=== PATIENT | male | born 1960 | race Two or more races ===

== ENCOUNTER 2023-12-05 17:19 | Emergency (ER) | payer MEDICAID, SELFPAY ==
--- NOTE | 2023-12-05 18:18 | PC.NURSE ---
CALLED FROM [facility] AND NO ANSWER
--- NOTE | 2023-12-05 18:25 | PC.NURSE ---
CALLED FROM [facility] AND NO ANSWER
--- NOTE | 2023-12-05 18:30 | PC.NURSE ---
CALLED FROM [facility] AND NO ANSWER
== END 2023-12-05 18:30 | disposition left against medical advice (07) ==
PROVIDERS: Emergency Provider Emergency Medicine
DX: Z53.21 Procedure and treatment not carried out due to patient leaving prior to being seen by health care provider (principal)

== ENCOUNTER 2024-11-18 04:34 | Emergency (ER) | payer MEDICARE, SELFPAY ==
[2024-11-18 04:38] VITALS: BP 184/95; PULSE 89; RESP 18; TEMP 36.4; O2SAT 97
--- NOTE | 2024-11-18 04:40 | XR_ITS ---
Examination: CT abdomen with intravenous contrast CT pelvis with intravenous contrast 2-D coronal reconstructions 2-D sagittal reconstructions Date and time of exam:November 18, 2024 0600 hrs. Indications: Abdominal pain and urinary retention today. CTDI: vol (mGy) 14.97 DLP: (mGycm) 673 Technique: Multiple axial sections of the abdomen and pelvis have been obtained. 64 slice high-resolution scanner used. 3 mm axial sections have been obtained, post intravenous injection 60 cc Isovue-370 2-D sagittal, coronal reconstructions obtained. Low dose protocols were performed. One or more of the following dose reduction techniques were used; automated exposure control, adjustment of the mA and/or KV according to patient size, use of iterative reconstruction technique. Findings: No focal liver or splenic lesions Contracted gallbladder No pancreatic or adrenal mass No renal or ureteral calculi. There is minimal dilatation of the left ureter which appears to relate to the patient's marked prostatomegaly, AP dimension 5.3 cm Urinary bladder wall is thickened, likely outflow tract obstruction secondary to the prostatomegaly Urinary Calvert catheter in the bladder Fat-containing left inguinal hernia Normal appendix No bowel obstruction Scattered colonic diverticulosis Impression: Minimal dilatation left ureter secondary to the patient's marked prostatomegaly Urinary bladder wall is thickened up to 7 mm, likely urinary tract outflow obstruction secondary to the significant prostatomegaly Urinary Calvert catheter is in the bladder Small fat-containing left inguinal hernia
--- NOTE | 2024-11-18 04:53 | EDNOTE_ITS ---
ED Male Genitalurinary RME/HPI General Chief complaint: Urogenital-Male Stated complaint: UNABLE TO URINATE Time Seen by Provider: 11/18/24 04:46 Arrival date/time: 11/18/24 04:34 RME / HPI RME / HPI Narrative: See MDM for documentation Related Data Allergies Allergy/AdvReac Type Severity Reaction Status Date / Time No Known Allergies Allergy Verified 11/18/24 04:44 Review of Systems Review of Systems Systems Reviewed: All systems reviewed, normal except as documented ED Exam Narrative Physical exam: See MDM for documentation Course Quality Measures none Orders Category Date Time Status CT Screening NOW Care 11/18/24 04:40 Active Calvert [Urinary Catheter] QS Care 11/18/24 04:45 Active Calvert to [place] Routine Care 11/18/24 04:38 Ordered Saline [Insert IV] NOW Care 11/18/24 04:[address] abdomen pelvis w con Stat Exams 11/18/24 04:40 Ordered Alcohol, Blood Medical Stat Lab 11/18/24 04:42 Ordered Bilirubin,Direct Stat Lab 11/18/24 04:42 Ordered CBC Stat Lab 11/18/24 04:42 Ordered CMP [Comprehensive Metabolic Panel] Stat Lab 11/18/24 04:42 Ordered Magnesium Stat Lab 11/18/24 04:42 Ordered UA, C/S IF [Urinalysis, C/S if Indicated] Stat Lab 11/18/24 04:42 Ordered Vital Signs Vital signs: Vital Signs Temperature 97.6 F 11/18/24 04:38 Pulse Rate 89 11/18/24 04:38 Respiratory Rate 18 11/18/24 04:38 Blood Pressure 184/95 H 11/18/24 04:38 Pulse Oximetry (%) 97 11/18/24 04:38 Oxygen Delivery Method Room Air 11/18/24 04:38 Urogenital - Male [facility] Narrative [facility] Narrative:: This section includes all my notes and documentations, including HPI, PE, and ED course. Jose Cervantes MD HPI: 64-year-old male here with about 8-hour history of urinary retention and worsening lower abdominal pain. Had few alcoholic beverages prior to the symptoms. No nausea or vomiting. No fever or chills. No other complaints. ROS: All negative except as documented in HPI. Physical Exam: General: Alert and oriented. In severe pain. Eyes: Conjunctivae and lids clear. ENT: No nasal congestion. Neck: Supple. Heart: RRR. Lungs: No respiratory distress. Good air movement. No rhonchi, wheezing, rales. Abdomen: Soft with suprapubic tenderness. Normal bowel sounds. No distension. No rebound or guarding. Back: No CVA tenderness. Skin: Warm and dry. Neuro: Alert and oriented X 3. I ordered Calvert catheter and diagnostic tests. At 6 AM on 11/18/2024, the care of the patient was transferred to Dr. Chew. Jose Cervantes MD Patient data External records reviewed:: [facility] previous records Clinical information provided by:: patient and spouse Social determinants that could affect healthcare access:: none Patient has the following chronic illnesses:: None How is presenting disease/condition affected by chronic disease/condition?: no chronic disease Evaluation data The following diagnostics were reviewed and interpreted by me:: other (specify) (Diagnostic tests are pending.) Lab and/or radiology exams considered but not ordered:: None Interpretation Summary: Diagnostic tests are pending. Medications / Prescriptions Medications or Prescriptions considered but not ordered:: None Medication administrations:: None Consultations Consultation(s) initiated? (list below): No Diagnosis Urogenital Male Differential Diagnosis: urinary tract infection, acute retention of urine and other (BPH and pyelonephritis and kidney disease and prostate cancer) Most likely diagnosis given after review of the tests above:: Diagnostic tests are pending. Admission Indicated Admission indicated?: not indicated Explain why admission is indicated or not indicated:: Diagnostic tests are pending. Admission Request Was there a request for admission?: No Disposition Plan Disposition Plan: other (specify) (At 6 AM on 11/18/2024, the care of the patient was transferred to Dr. Chew. ) Discharge Plan Problem List Clinical Impression: Acute urinary retention Patient/Caregiver Discharge Instructions Print Language: Albanian
[2024-11-18 05:02] LABS: Collection Type, Urine Clean Catch
[2024-11-18 05:05] LABS: Bilirubin,Urine Negative (Negative); Blood,Urine 3+ (Negative); Clarity,Urine Clear (Clear/Hazy); Color,Urine Colorless (Lt Yel-Yel); Culture Indicated,Urine Not Indicated; Glucose, Urine Negative (Negative); Ketones,Urine Negative (Negative); Leukocyte Esterase,Urine Negative (Negative); Nitrite,Urine Negative (Negative); PH,Urine 5.5 (5.0-7.0); Protein,Urine Negative (Neg - Trace); RBC,Urine 11 /hpf (0-3); Specific Gravity,Urine 1.011 (1.001-1.035); Squamous Epithelial Cell,Urine < 1 /hpf (0-5); Urobilinogen,Urine Negative mg/dL (0.0-1.0); WBC,Urine 2 /hpf (0-5)
[2024-11-18 05:06] LABS: Basophils # (Auto) 0.1 Thou/mm3 (0.0-0.2); Basophils % (Auto) 1 % (0-2.5); Eosinophils # (Auto) 0.1 Thou/mm3 (0.0-0.5); Eosinophils % (Auto) 1 % (0-10); Hematocrit 41.9 % (41.0-53.0); Hemoglobin 14.8 g/dL (13.5-16.0); Immature Granulocytes Auto 0.05 Thou/mm3 (0.00-0.00); Lymphocytes # (Auto) 1.4 Thou/mm3 (1.0-4.8); Lymphocytes % (Auto) 22 % (10-50); Mean Corpuscular HGB Conc 35.3 g/dl (31.0-37.0); Mean Corpuscular Hemoglobin 29.9 pg (25.0-35.0); Mean Corpuscular Volume 85 fL (80-100); Monocytes # (Auto) 0.4 Thou/mm3 (0.0-0.8); Monocytes % (Auto) 6 % (0-12); Neutrophils # (Auto) 4.2 Thou/mm3 (1.8-7.7); Neutrophils % (Auto) 68 % (37-80); Nucleated Red Blood Cell # 0.00 Thou/mm3 (0.00-0.00); Nucleated Red Blood Cell % 0 /100 WBC (0); Platelet Count 220 Thou/mm3 (140-440); RDW Standard Deviation 35.8 fL (35.1-43.9); Red Blood Count 4.95 Miln/mm3 (4.50-5.90); White Blood Count 6.2 Thou/mm3 (3.8-10.6)
[2024-11-18 05:28] LABS: Alanine Aminotransferase 24 U/L (10-49); Albumin, Serum 4.9 gm/dL (3.4-4.8); Albumin/Globulin Ratio 2.0 (1.2-2.2); Alcohol, Blood Medical 116.9 mg/dL (0-10.0); Alkaline Phosphatase 96 U/L (46-116); Anion Gap 13 (7-16); Aspartate Amino Transferase 25 U/L (0-34); BUN/Creatinine Ratio 13 Ratio (12-20); Bilirubin,Direct < 0.1 mg/dL (0.0-0.3); Bilirubin,Total 0.3 mg/dL (0.3-1.2); Blood Urea Nitrogen 12 mg/dL (9-23); Calcium 9.2 mg/dL (8.3-10.6); Calcium (Corrected) 9.2 mg/dL (8.5-10.1); Carbon Dioxide 18.7 mMol/L (20.0-31.0); Chloride 111 mMol/L (98-107); Creatinine (Component) 0.9 mg/dL (0.6-1.3); Globulin 2.4 gm/dL (2.3-3.5); Glucose 126 mg/dL (74-106); Magnesium 2.4 mg/dL (1.6-2.6); Osmolality,Calculated 286 (275-295); Potassium 4.1 mMol/L (3.4-5.1); Sodium 143 mMol/L (136-145); Total Protein 7.3 gm/dL (5.7-8.2); eGFR > 60 See Note
[2024-11-18] MEDS: SODIUM CHLORIDE 0.9% 1000 ML 1,000 ML 999 ML IV (06:11)
--- NOTE | 2024-11-18 06:43 | PD.EDADDENDU ---
Emergency Room Addendum <Hilda Rodriguez - Last Filed: 11/18/24 08:19> Addendum Narrative: 0600: Care assumed from Dr. Cervantes, the previous shift emergency physician. Past medical, surgical, social and family history reviewed. Vitals and home medications reviewed. I will assume the care of the patient at this time, pending abdomen/ pelvis CT and final disposition. Please refer to the emergency department record for history and examination from initial visit.? CT scan of the abdomen and pelvis on 11/18/2024 shows: Impression: Minimal dilatation left ureter secondary to the patient's marked prostatomegaly Urinary bladder wall is thickened up to 7 mm, likely urinary tract outflow obstruction secondary to the significant prostatomegaly Urinary Calvert catheter is in the bladder Small fat-containing left inguinal hernia Physical exam by me shows patient under no acute distress at this time. Patient will be discharged home with a Calvert in place and a leg bag. Follow-up with his regular doctor and referral to urology. <Monico Chew MD - Last Filed: 11/18/24 08:14> Addendum Narrative: 0600: Care assumed from Dr. Cervantes, the previous shift emergency physician. Past medical, surgical, social and family history reviewed. Vitals and home medications reviewed. I will assume the care of the patient at this time, pending abdomen/ pelvis CT and final disposition. Please refer to the emergency department record for history and examination from initial visit.? CT scan of the abdomen and pelvis on 11/18/2024 shows: Impression: Minimal dilatation left ureter secondary to the patient's marked prostatomegaly Urinary bladder wall is thickened up to 7 mm, likely urinary tract outflow obstruction secondary to the significant prostatomegaly Urinary Calvert catheter is in the bladder Small fat-containing left inguinal hernia Physical exam by me shows patient under no acute distress at this time. Patient will be discharged home with a Calvert in place and a leg bag. Follow-up with his regular doctor and referral to urology. Results <Hilda Rodriguez - Last Filed: 11/18/24 08:19> Objective Laboratory: Laboratory Last Values WBC 6.2 Thou/mm3 (3.8-10.6) 11/18/24 04:50 RBC 4.95 Miln/mm3 (4.50-5.90) 11/18/24 04:50 Hgb 14.8 g/dL (13.5-16.0) 11/18/24 04:50 Hct 41.9 % (41.0-53.0) 11/18/24 04:50 MCV 85 fL (80-100) 11/18/24 04:50 MCH 29.9 pg (25.0-35.0) 11/18/24 04:50 MCHC 35.3 g/dl (31.0-37.0) 11/18/24 04:50 RDW Std Deviation 35.8 fL (35.1-43.9) 11/18/24 04:50 Plt Count 220 Thou/mm3 (140-440) 11/18/24 04:50 Neut % (Auto) 68 % (37-80) 11/18/24 04:50 Lymph % (Auto) 22 % (10-50) 11/18/24 04:50 [place] % (Auto) 6 % (0-12) 11/18/24 04:50 Eos % (Auto) 1 % (0-10) 11/18/24 04:50 Baso % (Auto) 1 % (0-2.5) 11/18/24 04:50 Neut # (Auto) 4.2 Thou/mm3 (1.8-7.7) 11/18/24 04:50 Lymph # (Auto) 1.4 Thou/mm3 (1.0-4.8) 11/18/24 04:50 [place] # (Auto) 0.4 Thou/mm3 (0.0-0.8) 11/18/24 04:50 Eos # (Auto) 0.1 Thou/mm3 (0.0-0.5) 11/18/24 04:50 Baso # (Auto) 0.1 Thou/mm3 (0.0-0.2) 11/18/24 04:50 Immature Gran # (Auto) 0.05 Thou/mm3 (0.00-0.00) H 11/18/24 04:50 Absolute Nucleated RBC 0.00 Thou/mm3 (0.00-0.00) 11/18/24 04:50 Immature Gran % 1 % (0-0) H 11/18/24 04:50 Nucleated RBC % 0 /100 WBC (0) 11/18/24 04:50 Sodium 143 mMol/L (136-145) 11/18/24 04:50 Potassium 4.1 mMol/L (3.4-5.1) 11/18/24 04:50 Chloride 111 mMol/L (98-107) H 11/18/24 04:50 Carbon Dioxide 18.7 mMol/L (20.0-31.0) L 11/18/24 04:50 Anion Gap 13 (7-16) 11/18/24 04:50 BUN 12 mg/dL (9-23) 11/18/24 04:50 Creatinine 0.9 mg/dL (0.6-1.3) 11/18/24 04:50 Estim Creat Clear Calc Not Performed. 11/18/24 04:50 eGFR > 60 See Note (60-) 11/18/24 04:50 BUN/Creatinine Ratio 13 Ratio (12-20) 11/18/24 04:50 Glucose 126 mg/dL (74-106) H 11/18/24 04:50 Calculated Osmolality 286 (275-295) 11/18/24 04:50 Calcium 9.2 mg/dL (8.3-10.6) 11/18/24 04:50 Corrected Calcium 9.2 mg/dL (8.5-10.1) 11/18/24 04:50 Magnesium 2.4 mg/dL (1.6-2.6) 11/18/24 04:50 Total Bilirubin 0.3 mg/dL (0.3-1.2) 11/18/24 04:50 Direct Bilirubin < 0.1 mg/dL (0.0-0.3) 11/18/24 04:50 AST 25 U/L (0-34) 11/18/24 04:50 ALT 24 U/L (10-49) 11/18/24 04:50 Alkaline Phosphatase 96 U/L (46-116) 11/18/24 04:50 Total Protein 7.3 gm/dL (5.7-8.2) 11/18/24 04:50 Albumin 4.9 gm/dL (3.4-4.8) H 11/18/24 04:50 Globulin 2.4 gm/dL (2.3-3.5) 11/18/24 04:50 Albumin/Globulin Ratio 2.0 (1.2-2.2) 11/18/24 04:50 Ur Collection Type Clean Catch 11/18/24 04:57 Urine Color Colorless (Lt Yel-Yel) A 11/18/24 04:57 Urine Clarity Clear (Clear/Hazy) 11/18/24 04:57 Urine pH 5.5 (5.0-7.0) 11/18/24 04:57 Ur Specific [place] 1.011 (1.001-1.035) 11/18/24 04:57 Urine Protein Negative (Neg - Trace) 11/18/24 04:57 Urine Glucose (UA) Negative (Negative) 11/18/24 04:57 Urine Ketones Negative (Negative) 11/18/24 04:57 Urine Blood 3+ (Negative) A 11/18/24 04:57 Urine Nitrite Negative (Negative) 11/18/24 04:57 Urine Bilirubin Negative (Negative) 11/18/24 04:57 Urine Urobilinogen (Auto) Negative mg/dL (0.0-1.0) 11/18/24 04:57 Ur Leukocyte Esterase Negative (Negative) 11/18/24 04:57 Urine RBC 11 /hpf (0-3) H 11/18/24 04:57 Urine WBC 2 /hpf (0-5) 11/18/24 04:57 Ur Squamous Epith Cells < 1 /hpf (0-5) 11/18/24 04:57 Urine Bacteria None (None) 11/18/24 04:57 Ur Culture Indicated? Not Indicated 11/18/24 04:57 Ethyl Alcohol 116.9 mg/dL (0-10.0) H 11/18/24 04:50 Imaging: Procedure(s): CT abdomen pelvis w con Accession Number(s): [id number] cc: Blair Real MD; Jose Cervantes MD; Curry Bailon MD~ Examination: CT abdomen with intravenous contrast CT pelvis with intravenous contrast 2-D coronal reconstructions 2-D sagittal reconstructions Date and time of exam:November 18, 2024 0600 hrs. Indications: Abdominal pain and urinary retention today. CTDI: vol (mGy) 14.97 DLP: (mGycm) 673 Technique: Multiple axial sections of the abdomen and pelvis have been obtained. 64 slice high-resolution scanner used. 3 mm axial sections have been obtained, post intravenous injection 60 cc Isovue-370 2-D sagittal, coronal reconstructions obtained. Low dose protocols were performed. One or more of the following dose reduction techniques were used; automated exposure control, adjustment of the mA and/or KV according to patient size, use of iterative reconstruction technique. Findings: No focal liver or splenic lesions Contracted gallbladder No pancreatic or adrenal mass No renal or ureteral calculi. There is minimal dilatation of the left ureter which appears to relate to the patient's marked prostatomegaly, AP dimension 5.3 cm Urinary bladder wall is thickened, likely outflow tract obstruction secondary to the prostatomegaly Urinary Calvert catheter in the bladder Fat-containing left inguinal hernia Normal appendix No bowel obstruction Scattered colonic diverticulosis Impression: Minimal dilatation left ureter secondary to the patient's marked prostatomegaly Urinary bladder wall is thickened up to 7 mm, likely urinary tract outflow obstruction secondary to the significant prostatomegaly Urinary Calvert catheter is in the bladder Small fat-containing left inguinal hernia Dictated By: Curry Bailon MD <Monico Chew MD - Last Filed: 11/18/24 08:14> Objective Laboratory: Laboratory Last Values WBC 6.2 Thou/mm3 (3.8-10.6) 11/18/24 04:50 RBC 4.95 Miln/mm3 (4.50-5.90) 11/18/24 04:50 Hgb 14.8 g/dL (13.5-16.0) 11/18/24 04:50 Hct 41.9 % (41.0-53.0) 11/18/24 04:50 MCV 85 fL (80-100) 11/18/24 04:50 MCH 29.9 pg (25.0-35.0) 11/18/24 04:50 MCHC 35.3 g/dl (31.0-37.0) 11/18/24 04:50 RDW Std Deviation 35.8 fL (35.1-43.9) 11/18/24 04:50 Plt Count 220 Thou/mm3 (140-440) 11/18/24 04:50 Neut % (Auto) 68 % (37-80) 11/18/24 04:50 Lymph % (Auto) 22 % (10-50) 11/18/24 04:50 [place] % (Auto) 6 % (0-12) 11/18/24 04:50 Eos % (Auto) 1 % (0-10) 11/18/24 04:50 Baso % (Auto) 1 % (0-2.5) 11/18/24 04:50 Neut # (Auto) 4.2 Thou/mm3 (1.8-7.7) 11/18/24 04:50 Lymph # (Auto) 1.4 Thou/mm3 (1.0-4.8) 11/18/24 04:50 [place] # (Auto) 0.4 Thou/mm3 (0.0-0.8) 11/18/24 04:50 Eos # (Auto) 0.1 Thou/mm3 (0.0-0.5) 11/18/24 04:50 Baso # (Auto) 0.1 Thou/mm3 (0.0-0.2) 11/18/24 04:50 Immature Gran # (Auto) 0.05 Thou/mm3 (0.00-0.00) H 11/18/24 04:50 Absolute Nucleated RBC 0.00 Thou/mm3 (0.00-0.00) 11/18/24 04:50 Immature Gran % 1 % (0-0) H 11/18/24 04:50 Nucleated RBC % 0 /100 WBC (0) 11/18/24 04:50 Sodium 143 mMol/L (136-145) 11/18/24 04:50 Potassium 4.1 mMol/L (3.4-5.1) 11/18/24 04:50 Chloride 111 mMol/L (98-107) H 11/18/24 04:50 Carbon Dioxide 18.7 mMol/L (20.0-31.0) L 11/18/24 04:50 Anion Gap 13 (7-16) 11/18/24 04:50 BUN 12 mg/dL (9-23) 11/18/24 04:50 Creatinine 0.9 mg/dL (0.6-1.3) 11/18/24 04:50 Estim Creat Clear Calc Not Performed. 11/18/24 04:50 eGFR > 60 See Note (60-) 11/18/24 04:50 BUN/Creatinine Ratio 13 Ratio (12-20) 11/18/24 04:50 Glucose 126 mg/dL (74-106) H 11/18/24 04:50 Calculated Osmolality 286 (275-295) 11/18/24 04:50 Calcium 9.2 mg/dL (8.3-10.6) 11/18/24 04:50 Corrected Calcium 9.2 mg/dL (8.5-10.1) 11/18/24 04:50 Magnesium 2.4 mg/dL (1.6-2.6) 11/18/24 04:50 Total Bilirubin 0.3 mg/dL (0.3-1.2) 11/18/24 04:50 Direct Bilirubin < 0.1 mg/dL (0.0-0.3) 11/18/24 04:50 AST 25 U/L (0-34) 11/18/24 04:50 ALT 24 U/L (10-49) 11/18/24 04:50 Alkaline Phosphatase 96 U/L (46-116) 11/18/24 04:50 Total Protein 7.3 gm/dL (5.7-8.2) 11/18/24 04:50 Albumin 4.9 gm/dL (3.4-4.8) H 11/18/24 04:50 Globulin 2.4 gm/dL (2.3-3.5) 11/18/24 04:50 Albumin/Globulin Ratio 2.0 (1.2-2.2) 11/18/24 04:50 Ur Collection Type Clean Catch 11/18/24 04:57 Urine Color Colorless (Lt Yel-Yel) A 11/18/24 04:57 Urine Clarity Clear (Clear/Hazy) 11/18/24 04:57 Urine pH 5.5 (5.0-7.0) 11/18/24 04:57 Ur Specific [place] 1.011 (1.001-1.035) 11/18/24 04:57 Urine Protein Negative (Neg - Trace) 11/18/24 04:57 Urine Glucose (UA) Negative (Negative) 11/18/24 04:57 Urine Ketones Negative (Negative) 11/18/24 04:57 Urine Blood 3+ (Negative) A 11/18/24 04:57 Urine Nitrite Negative (Negative) 11/18/24 04:57 Urine Bilirubin Negative (Negative) 11/18/24 04:57 Urine Urobilinogen (Auto) Negative mg/dL (0.0-1.0) 11/18/24 04:57 Ur Leukocyte Esterase Negative (Negative) 11/18/24 04:57 Urine RBC 11 /hpf (0-3) H 11/18/24 04:57 Urine WBC 2 /hpf (0-5) 11/18/24 04:57 Ur Squamous Epith Cells < 1 /hpf (0-5) 11/18/24 04:57 Urine Bacteria None (None) 11/18/24 04:57 Ur Culture Indicated? Not Indicated 11/18/24 04:57 Ethyl Alcohol 116.9 mg/dL (0-10.0) H 11/18/24 04:50
[2024-11-18 07:13] VITALS: BP 170/93; PULSE 78; RESP 17; TEMP 36.6; O2SAT 98
== END 2024-11-18 09:37 | disposition home or self-care (01) ==
PROVIDERS: Emergency Provider Emergency Medicine; PCP Family Medicine
DX: N40.1 Benign prostatic hyperplasia with lower urinary tract symptoms (principal); R33.8 Other retention of urine; K40.90 Unilateral inguinal hernia, without obstruction or gangrene, not specified as recurrent; N32.89 Other specified disorders of bladder
CPT/HCPCS: 51702; 36415; 74177; 80053; 80320; 81001; 82248; 83735; 85025; 96360; 99284; A4314; A4649; J7030; Q9967; G0480

== ENCOUNTER 2024-11-23 19:55 | Emergency (ER) | payer MEDICARE, SELFPAY ==
[2024-11-23 19:57] VITALS: BMI 27.3
[2024-11-23 21:05] VITALS: BP 160/96; PULSE 105; RESP 16; TEMP 37.7; O2SAT 97
--- NOTE | 2024-11-23 21:13 | EDNOTE_ITS ---
ED Male Genitalurinary RME/HPI General Chief complaint: Urogenital-Male Stated complaint: LEAKING AROUND CATHETER, PAIN WITH URINATION Time Seen by Provider: 11/23/24 21:04 Arrival date/time: 11/23/24 19:55 64M with no significant PMH presents to ED with wanting Calvert cath removed. Patient has urologist appt tomorrow. Limitations: no limitations Related Data Allergies Allergy/AdvReac Type Severity Reaction Status Date / Time No Known Allergies Allergy Verified 11/23/24 19:56 Review of Systems Review of Systems Systems Reviewed: All systems reviewed, normal except as documented Past Medical History Past Medical History CARDIAC: Negative Cardiac Disorders or Congestive Heart Failure RESPIRATORY: Negative Chronic Obstructive Pulmonary Disease (COPD) or Asthma GENITOURINARY: Negative Renal Disease ENDOCRINE: Negative Diabetes Mellitus Type 1 Social History SMOKING STATUS: Never smoker ED Exam General Limitations: Present no limitations General appearance: Present alert and in no apparent distress Head Head exam: Present atraumatic Neck Neck exam: Present normal inspection, full ROM and trachea midline Chest Chest inspection: Present normal inspection and symmetric chest wall rise Extremities Exam Extremities exam: Present normal inspection and full ROM Neurological Exam Neurological exam: Present alert and oriented X3 Psychiatric Psychiatric exam: Present normal affect and normal mood Skin Skin exam: Present warm, dry, intact and normal color Course Quality Measures none Orders Category Date Time Status Calvert [Urinary Catheter, Remove] ONCE Care 11/23/24 21:04 Completed Vital Signs Vital signs: Vital Signs Temperature 99.9 F 11/23/24 21:05 Pulse Rate 105 H 11/23/24 21:05 Respiratory Rate 16 11/23/24 21:05 Blood Pressure 160/96 H 11/23/24 21:05 Pulse Oximetry (%) 97 11/23/24 21:05 Oxygen Delivery Method Room Air 11/23/24 21:05 O2 at 97% on RA and WNLs Urogenital - Male MDM Narrative MDM Narrative:: 64M with no significant PMH presents to ED with wanting Calvert cath removed. Patient has urologist appt tomorrow. Physical exam reveals uncomfortable-appearing male. Patient is afebrile, calm, and alert. Calvert removed. Patient data External records reviewed:: [facility] previous records Clinical information provided by:: patient Social determinants that could affect healthcare access:: none Patient has the following chronic illnesses:: none How is presenting disease/condition affected by chronic disease/condition?: no chronic disease Evaluation data The following diagnostics were reviewed and interpreted by me:: other (specify) (none) Lab and/or radiology exams considered but not ordered:: not ordered Interpretation Summary: n/a Medications / Prescriptions Medications or Prescriptions considered but not ordered:: not ordered Medication administrations:: n/a Consultations Consultation(s) initiated? (list below): No Diagnosis Urogenital Male Differential Diagnosis: urinary tract infection, priapism, urethritis, epididymitis, genital herpes simplex, prostatitis, acute retention of urine, inguinal hernia and other (Encounter for Calvert removal) Most likely diagnosis given after review of the tests above:: Encounter for Calvert removal Admission Indicated Admission indicated?: not indicated Admission Request Was there a request for admission?: No Disposition Plan Disposition Plan: Discharge Discharge Attestation Discharge Attestation: The patient and all family members were given an opportunity to ask questions and understood the discharge instructions. Discharge instructions specifically effects, indications for sooner follow up or return to the emergency department, and the expected course of current diagnosis. Patient condition: Stable Discharge Plan Plan Patient Disposition: HOME (Self Care) Discharge Disposition comment: Stable Problem List Clinical Impression: Encounter for Calvert catheter removal Patient/Caregiver Discharge Instructions Additional Instructions: Please follow-up with PCP within 24-48 hours and return immediately if symptoms worsen. Print Language: Albanian Stand Alone Forms: Patient Portal Info Letter MAREN/JOSSELYN Supervising Physician TEE Supervising Physician: Dr. Harp
== END 2024-11-23 21:13 | disposition home or self-care (01) ==
LOC: SERX 21:11
PROVIDERS: Emergency Provider Emergency Medicine; PCP Family Medicine
DX: Z46.6 Encounter for fitting and adjustment of urinary device (principal)
CPT/HCPCS: 99284